=== PATIENT | male | born 1960 | race Caucasian/White ===

== ENCOUNTER 2017-01-17 08:43 | Emergency (ER) | payer OTHER ==
[~2017-01-17] VITALS: Ht 170.2 cm; Wt 90.0 kg
[~2017-01-17 08:43] MED LIST: LISI-360 PO; MECL25CH PO; PRED10 PO
[2017-01-17 08:49] VITALS: BP 171/105; PULSE 66; RESP 16; TEMP 98.2; O2SAT 96
[2017-01-17] MEDS ORDERED: LISI40TA PO (09:01)
[2017-01-17] MEDS ORDERED: MELO-1 PO (09:23)
--- NOTE | 2017-01-17 09:23 | PD ---
HPI Chief Complaint: Musculoskeletal Complaint Time Seen by Provider: 08:55 Travel History International Travel<30 days: No Contact w/Intl Traveler<30days: No Traveled to known affect area: No History of Present Illness HPI So 56-year-old man who presents to the emergency department complaining of right anterior shoulder right lateral chest wall pain. He states is been going on for about a week or 2. Is worse when he first gets up in the morning. This precipitated almost exclusively by certain arm movements. There is no worsening pain with coughing or deep breathing. Has not had before. He states he recently took a bite class does have have to pull up on the front of the bike to go up on curbs sometimes. History Past Medical History Narrative Medical Hypertension Social History Alcohol Use: Yes (1 beer/week) Tobacco Use: No Allergies-Medications (Allergen,Severity, Reaction): Coded Allergies: Penicillin (Verified Allergy, Mild, RASH, 01/17/17) Reported Meds & Prescriptions Reported Meds & Active Scripts Active Reported Lisinopril 40 Mg Tab 40 Mg PO DAILY Review of Systems Except as stated in HPI: all other systems reviewed are Neg Physical Exam Narrative GENERAL: Well-appearing 56-year-old man, no acute distress. SKIN: Warm and dry. CARDIOVASCULAR: Warm and well perfused. RESPIRATORY: Normal rate and effort. MUSCULOSKELETAL: Right sided chest wall tenderness. She is some tenderness just in the pectoralis muscle. He has full range of motion of the shoulder. There is no real anterior deltoid pain. No other areas of tenderness. Data Data Last Documented VS Vital Signs Date Time Temp Pulse Resp B/P Pulse Ox O2 Delivery O2 Flow Rate FiO2 01/17/17 08:49 98.2 66 16 171/105 96 MDM Medical Decision Making Medical Screen Exam Complete: Yes Emergency Medical Condition: Yes Differential Diagnosis Chest wall pain, inflammation, pericarditis, other Narrative Course Medical decision-making new para this is a 56 old man who presents emergent department with lateral chest wall pain. It seems to be clearly the pectoralis muscle. He is likely having inflammation. Diagnosis Primary Impression: Chest wall muscle strain Additional Instructions: Take meloxicam as prescribed. Follow-up with your primary doctor for not completely well in 2-3 weeks. Return to the emergency department for any new or worsening symptoms. Med/Other Pt SpecificInfo: Prescription(s) given Scripts Meloxicam 15 Mg Tab15 Mg PO DAILY #10 TAB Ref 0 Prov:Alan Harp MD 01/17/17 Disposition: 01 DISCHARGE HOME Condition: Stable Alan Harp MD Jan 17, 2017 09:23
== END 2017-01-17 09:43 | disposition home or self-care (01) ==
LOC: PHED 08:43
DX: S29.011A Strain of muscle and tendon of front wall of thorax, initial encounter (principal); S21.101A Unspecified open wound of right front wall of thorax without penetration into thoracic cavity, initial encounter; X58.XXXA Exposure to other specified factors, initial encounter; Y93.9 Activity, unspecified; Y92.9 Unspecified place or not applicable; I10 Essential (primary) hypertension
CPT/HCPCS: 99283